=== PATIENT | female | born 1995 | race African-American/Black ===

== ENCOUNTER → 2017-05-07 | Emergency (ER) | payer OTHER ==
[~2017-05-07] MED LIST: KETOROLAC TROMETHAMINE 30 MG/1 ML VIAL IVPUSH ONE; KETOROLAC TROMETHAMINE 30 MG/1 ML VIAL ONE; SODIUM CHLORIDE 1,000 ML IV ONE
[2017-05-07 19:11] VITALS: BP 111/62; PULSE 71; TEMP 97.9; BMI 30.9
[2017-05-07 20:05] LABS: URINE APPEARANCE SLCLOUDY; URINE BILIRUBIN NEGATIVE (NEGATIVE); URINE BLOOD NEGATIVE (NEGATIVE); URINE COLOR YELLOW; URINE GLUCOSE (UA) NEGATIVE (NEGATIVE); URINE KETONE TRACE (NEGATIVE); URINE NITRITE NEGATIVE (NEGATIVE); URINE PROTEIN NEGATIVE (NEGATIVE); URINE UROBILINOGEN NEGATIVE mg/dL (0.2-1.0)
[2017-05-07 20:12] LABS: URINE LEUK ESTERASE 2+ (NEGATIVE)
[2017-05-07 20:16] LABS: URINE BACTERIA RARE /hpf (NONE SEEN); URINE MUCUS RARE; URINE RBC 2 /hpf (0-3); URINE WBC 23 /hpf (3-5)
[2017-05-07 20:59] LABS: BASOPHIL 0.3 % (0-2.0); EOSINOPHIL 5.3 % (0-4.5); MCH 28.8 pg (25.7-33.7); MCHC 33.7 g/dl (32.0-36.0); MEAN CELL VOLUME 85.5 fl (80-96); MEAN PLT VOLUME 8.3 fl (7.5-11.1); NEUTROPHILS 52.8 % (42.8-82.8); PLATELET COUNT 313 K/MM3 (134-434); RDW 13.5 % (11.6-15.6); WHITE BLOOD COUNT 9.7 K/mm3 (4.0-10.0)
--- NOTE | 2017-05-07 21:02 | PDOC ---
History of Present Illness <Michele Recio - Last Filed: 05/07/17 22:42> - General History Source: Patient Exam Limitations: No Limitations - History of Present Illness Initial Comments: 05/08/17 00:17 The patient is a 21 year old female with no significant past medical history who presents to the ED with progressively worsening left flank pain for 3 days. Patient reports intermittent left lower quadrant pain radiating to her left lower back for the past month. She states her left flank pain progressively worsened in the past 3 days, lasting several hours before residing. She states her left flank pain is worsened when standing and alleviated when sitting or lying down. She reports nausea and chills associated with present symptoms. Denies fever or vomiting. She also reports dark colored urine and notes she typically drinks a lot of water. Patient is on the hormonal control pill. Denies a hx of kidney stones. Denies dysuria, frequency or hematuria. Denies diarrhea. Denies chest pain or shortness of breath. Denies headache. Denies any other symptoms. <Jeromy Addison - Last Filed: 05/08/17 00:17> - General Chief Complaint: Pain Stated Complaint: STOMACH/BACK PAIN Time Seen by Provider: 05/07/17 19:44 Past History - Past Medical History Other medical history: none - Psycho/Social/Smoking Cessation Hx Anxiety: No Suicidal Ideation: No Smoking History: Never smoked Have you smoked in the past 12 months: No Information on smoking cessation initiated: No Hx Alcohol Use: No Drug/Substance Use Hx: No Substance Use Type: None <Michele Recio - Last Filed: 05/07/17 22:42> <Jeromy Addison - Last Filed: 05/08/17 00:17> - Past Medical History Allergies/Adverse Reactions: Allergies Allergy/AdvReac Type Severity Reaction Status Date / Time No Known Allergies Allergy Verified 05/07/17 19:09 Home Medications: Ambulatory Orders NK [No Known Home Medication] 05/07/17 Review of Systems - Review of Systems Able to Perform ROS?: Yes Comments:: 05/08/17 00:17 CONSTITUTIONAL: + chills No reported: Fever, Diaphoresis, Generalized Weakness, Malaise, Loss of Appetite HEENT: No reported: Rhinorrhea, Nasal Congestion, Throat Pain, Throat Swelling, Difficulty Swallowing, Mouth Swelling, Ear Pain, Eye Pain, Visual Changes CARDIOVASCULAR: No reported: Chest Pain, Syncope, Palpitations, Irregular Heart Rate, Lightheadedness, Peripheral Edema RESPIRATORY: No reported: Cough, Shortness of Breath, SOB with Exertion, Orthopnea, Wheezing , Stridor, Hemoptysis GASTROINTESTINAL: + nausea No reported: Abdominal pain, Abdominal Distension, Vomiting, Diarrhea, Constipation, Melena, Hematochezia GENITOURINARY: + flank pain, dark colored urine No reported: Dysuria, Frequency, Urgency, Hesitancy,Genital Pain MUSCULOSKELETAL: No reported: Myalgia, Arthralgia, Joint Swelling, Back pain, Neck Pain SKIN: No reported: Rash, Itching, Pallor HEMEATOLOGIC/IMMUNOLOGIC: No reported: Easy Bleeding, Easy Bruising, Lymphadenopathy, Frequent infections ENDOCRINE: No reported: Unexplained Weight Gain, Unexplained Weight Loss, Heat Intolerance , Cold Intolerance NEUROLOGIC: No reported: Headache, Focal Weakness, Paresthesias, Vertigo, Lightheadedness, Unsteady Gait, Seizure, Mental Status Changes, Incontinence PSYCHIATRIC: No reported: Anxiety, Depression All Other Systems: Reviewed and Negative <Jeromy Addison - Last Filed: 05/08/17 00:17> *Physical Exam - Vital Signs Last Vital Signs Temp Pulse Resp BP Pulse Ox 97.9 F 71 18 111/62 100 05/07/17 19:10 05/07/17 19:10 05/07/17 19:10 05/07/17 19:10 05/07/17 19:10 <Michele Recio - Last Filed: 05/07/17 22:42> - Vital Signs Last Vital Signs Temp Pulse Resp BP Pulse Ox 97.9 F 71 18 111/62 100 05/07/17 19:10 05/07/17 19:10 05/07/17 19:10 05/07/17 19:10 05/07/17 19:10 - Physical Exam Comments: 05/08/17 00:17 GENERAL: The patient is awake, alert, and fully oriented, Nontoxic - in no acute distress. HEAD: Normocephalic, atraumatic. EYES: extraocular movements intact, sclera anicteric, conjunctiva clear. ENT: Normal voice, Moist mucous membranes. NECK: Normal range of motion, supple LUNGS: Breath sounds equal, clear to auscultation bilaterally. No wheezes, no rhonchi, no rales. HEART: Regular rate and rhythm, without murmur, rub or gallop. ABDOMEN: Soft, nontender, normoactive bowel sounds. No guarding, no rebound.No CVA tenderness EXTREMITIES: Normal range of motion, no edema. No clubbing or cyanosis. No cords, erythema, or tenderness. MUSCULOSKELETAL: + Mild CVA tenderness NEUROLOGICAL: No facial assymetry, Normal speech, PSYCH: Normal mood, normal affect. SKIN: Warm, Dry, normal turgor, <Addison,Andrys - Last Filed: 05/08/17 00:17> ED Treatment Course - LABORATORY CBC & Chemistry Diagram: 05/07/17 20:52 05/07/17 20:52 - ADDITIONAL ORDERS Additional order review: Laboratory Results 05/07/17 19:56 Urine Color Yellow Urine Appearance Slcloudy Urine pH 6.0 Urine Protein Negative Urine Glucose (UA) Negative Urine Ketones Trace H Urine Blood Negative Urine Nitrite Negative Urine Bilirubin Negative Urine Urobilinogen Negative Ur Leukocyte Esterase 2+ H Urine RBC 2 Urine WBC 23 Ur Epithelial Cells Moderate Urine Bacteria Rare Urine Mucus Rare Urine HCG, Qual Negative <Almita,Michele - Last Filed: 05/07/17 22:42> - LABORATORY CBC & Chemistry Diagram: 05/07/17 20:52 05/07/17 20:52 - ADDITIONAL ORDERS Additional order review: Laboratory Results 05/07/17 05/07/17 20:52 19:56 Sodium 141 Potassium 3.7 Chloride 109 H Carbon Dioxide 26 Anion Gap 6 L BUN 12 Creatinine 0.8 Creat Clearance w eGFR > 60 Random Glucose 86 Calcium 8.7 Total Bilirubin 0.2 AST 13 L ALT 22 Alkaline Phosphatase 67 Total Protein 7.2 Albumin 3.4 Urine Color Yellow Urine Appearance Slcloudy Urine pH 6.0 Ur Specific [place] 1.025 Urine Protein Negative Urine Glucose (UA) Negative Urine Ketones Trace H Urine Blood Negative Urine Nitrite Negative Urine Bilirubin Negative Urine Urobilinogen Negative Ur Leukocyte Esterase 2+ H Urine RBC 2 Urine WBC 23 Ur Epithelial Cells Moderate Urine Bacteria Rare Urine Mucus Rare Urine HCG, Qual Negative 05/07/17 20:52 RBC 4.53 MCV 85.5 MCHC 33.7 RDW 13.5 MPV 8.3 Neutrophils % 52.8 Lymphocytes % 30.2 Monocytes % 11.4 H Eosinophils % 5.3 H Basophils % 0.3 - RADIOLOGY Radiograph Interpretation: 05/08/17 00:00 EXAM: CT abdomen and pelvis without contrast IMPRESSION: There is no bowel obstruction, free air or free fluis. Negative for diverticulitis or colitis. Normal appendix. Abundant stool noted throughout the colon. Constipation. No urinary tract stone or obstruction. No acute abnormalities of the liver, gallbladder, spleen, pancreas, or adrenal glands. Reported by: Imaging hospital admissions officer - Medications Given in the ED: ED Medications Discontinued Medications Generic Name Dose Route Start Last Admin Trade Name Pasquale PRN Reason Stop Dose Admin Sodium Chloride 1,000 mls @ 1,000 mls/hr 05/07/17 20:43 05/07/17 20:58 Normal Saline - IV 05/07/17 21:42 1,000 mls/hr .Q1H ONE Administration Ketorolac Tromethamine 30 mg 05/07/17 20:43 05/07/17 20:58 Toradol Injection - IVPUSH 05/07/17 20:44 30 mg ONCE ONE Administration <Jeromy Addison - Last Filed: 05/08/17 00:17> Medical Decision Making - Medical Decision Making 05/07/17 20:44 21y F no pmhx persents with complaint of L flank and L abdomnal pain x 1 month, seems to be worsening and worse wwhen she is standing / ambulating, lasts for hours at a time. no associated fever/chills, vomiting, notes darker colored urine msk vs kidney stone vs /ectopic uhcg neg will give toradol ct abd will reassess A portion of this note was documented by scribe services under my direction. I have reviewed the details of the note, within reason, and agree with the documentation with the following case summary and management plan written by me 05/07/17 22:42 labs reviewed UA cw contamination - pt states she did not wipe prior to her ua. pt left prior to CT results <Michele Recio - Last Filed: 05/07/17 22:42> *DC/Admit/Observation/Transfer - Discharge Dispostion Admit: No <Michele Recio - Last Filed: 05/07/17 22:42> - Attestations Scribe Attestion: 05/08/17 00:17 Documentation prepared by Jeromy Addison, acting as medical billing supervisor for Michele Recio MD <Jeromy Addison - Last Filed: 05/08/17 00:17> Diagnosis at time of Disposition: Flank pain - Discharge Dispostion Disposition: ELOPED Condition at time of disposition: Stable - Referrals Referrals: STAFF,NOT ON [Primary Care Provider] -
[2017-05-07 21:38] LABS: ALBUMIN 3.4 g/dl (3.4-5.0); ALK PHOS 67 U/L (45-117); ANION GAP 6 (8-16); BILIRUBIN,TOTAL 0.2 mg/dL (0.2-1.0); CALCIUM 8.7 mg/dL (8.5-10.1); CO2 26 mmol/L (21-32); CREATININE 0.8 mg/dL (0.55-1.02); GLUCOSE,RANDOM 86 mg/dL (74-106); SGOT/AST 13 U/L (15-37); SGPT/ALT 22 U/L (12-78); TOT PROT 7.2 g/dl (6.4-8.2)
== END | disposition left against medical advice (07) ==
LOC: JER 18:29
PROC: 3E0333Z Introduction of Anti-inflammatory into Peripheral Vein, Percutaneous Approach (ICD-10-PCS; principal; 2017-05-07)
DX: R10.32 Left lower quadrant pain (principal)
CPT/HCPCS: 36415; 74176; 80053; 81003; 81015; 84703; 85025; 99282-25